=== PATIENT | female | born 1985 | race Caucasian/White ===

== ENCOUNTER 2017-09-13 09:52 | Emergency (ER) | payer OTHER ==
[2017-09-13] MEDS ORDERED: TYLENOL PO ONE (12:34)
[2017-09-13] MEDS ORDERED: TYLENOL ONE (12:39)
[2017-09-13] MEDS ORDERED: FLEXERIL PO ONE (14:24)
[2017-09-13] MEDS ORDERED: ZOFRAN ODT PO ONE (14:25)
[2017-09-13] MEDS ORDERED: NORCO 5/325 PO ONE (14:25)
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
[2017-09-13 15:41] VITALS: BP 134/92
== END 2017-09-13 15:43 | disposition home or self-care (01) ==
LOC: ED 09:52
DX: S16.1XXA Strain of muscle, fascia and tendon at neck level, initial encounter (principal); S39.012A Strain of muscle, fascia and tendon of lower back, initial encounter; F17.200 Nicotine dependence, unspecified, uncomplicated; Z88.6 Allergy status to analgesic agent; V23.4XXA Motorcycle driver injured in collision with car, pick-up truck or van in traffic accident, initial encounter; Y92.415 Exit ramp or entrance ramp of street or highway as the place of occurrence of the external cause; Y93.89 Activity, other specified; Y99.8 Other external cause status
CPT/HCPCS: 72070; 72125; Q0162

== ENCOUNTER 2017-09-14 23:54 | Emergency (ER) | payer OTHER | END 2017-09-15 04:00 | disposition left against medical advice (07) | LOC: ED 23:54 | DX: M54.2 Cervicalgia (principal); Z53.21 Procedure and treatment not carried out due to patient leaving prior to being seen by health care provider ==

== ENCOUNTER 2018-04-17 15:44 | Emergency (ER) | payer SELFPAY ==
[2018-04-17 16:26] LABS: Bilirubin,Urine NEG (Negative); Blood,Urine SM (Negative); Color,Urine Yellow (Yellow); HCG Qualitative,Urine Negative (Negative); Mucus,Urine FEW /HPF; Protein,Urine <15 mg/dL mg/dL (Negative); Urobilinogen,Urine < 2.0 mg/dL (<2.0)
[2018-04-17 16:42] LABS: Basophils # (Auto) 0.1 K/mm3 (0.0-0.1); Basophils % (Auto) 0.5 % (0.0-1.8); Eosinophils # (Auto) 0.4 K/mm3 (0.0-0.4); Eosinophils % (Auto) 3.8 % (0.0-4.3); Hematocrit 38.2 % (30.3-42.9); Hemoglobin 12.9 gm/dl (10.1-14.3); Lymphocytes # (Auto) 3.4 K/mm3 (1.2-5.4); Lymphocytes % (Auto) 30.5 % (13.4-35.0); Mean Corpuscular HGB Conc 34 % (30-34); Mean Corpuscular Hemoglobin 31 pg (28-32); Mean Corpuscular Volume 92 fl (79-97); Monocytes # (Auto) 0.7 K/mm3 (0.0-0.8); Monocytes % (Auto) 6.3 % (0.0-7.3); Platelet Count 244 K/mm3 (140-440); Red Blood Count 4.16 M/mm3 (3.65-5.03); Red Cell Distribution Width 12.3 % (13.2-15.2)
[2018-04-17 17:20] LABS: Alanine Aminotransferase 15 units/L (7-56); Albumin 4.5 g/dL (3.9-5); BUN/Creatinine Ratio 16; Blood Urea Nitrogen 13 mg/dL (7-17); Hemolysis Index 7; Lipase 23 units/L (13-60)
[2018-04-17] MEDS ORDERED: ZOFRAN IV ONE (17:48)
[2018-04-17] MEDS ORDERED: MORPHINE IV ONE (17:48)
[2018-04-17] MEDS ORDERED: NACL 0.9% 1000 ML 1,000 ML IV ONE (17:48)
--- NOTE | 2018-04-17 17:51 | Emergency Department Report ---
Elsy Doc - Documentation Documentation: 32 yo female with a past medical history PTSD and anxiety presents complaining of lower abdominal pain and lower back pain 3 weeks. Pain is sharp, constant, radiates from the back to the lower abdomen. Worse with palpation and movement. No alleviating factors. Recently patient has had nausea and vomiting as well as diarrhea. She denies dysuria. Patient denies concern for STDs and does not have sex with men. Positive family history of ovarian cancer. Labs reviewed and unremarkable Physical exam reveals significant lower abdominal tenderness CT abdomen and pelvis IV contrast, normal saline, Zofran, morphine initiated Mid-level to follow
[2018-04-17] MEDS ORDERED: NORCO 5/325 ONE (18:51)
[2018-04-17] MEDS ORDERED: NORCO 5/325 PO ONE (18:52)
--- NOTE | 2018-04-17 19:39 | Cat Scan Report ---
FINAL REPORT PROCEDURE: CT ABDOMEN PELVIS W CON TECHNIQUE: Computerized axial tomography of the abdomen and pelvis was performed after the IV injection of iodinated nonionic contrast. HISTORY: lower back and lower abd pain COMPARISON: No prior studies are available for comparison. FINDINGS: Lower Lung bazan: There is minimal dependent atelectasis. Lung bases otherwise are clear. Upper Abdomen: Gallbladder is contracted and difficult to evaluate. No gross abnormality is seen. The liver showed no focal abnormalities. The adrenal glands, the pancreas and the spleen are unremarkable. Kidneys, Ureters and Urinary bladder: No abnormalities are seen. Retroperitoneum: Atherosclerotic changes are seen in the abdominal aorta. No aneurysm is visualized. Nonspecific subcentimeter lymph nodes are seen in the retroperitoneum. No pathologically enlarged lymph nodes are identified. Bowel: No abnormalities are identified. No evidence of bowel obstruction or ascites. There is no free intraperitoneal gas. Normal-appearing appendix is seen in the right lower quadrant. Reproductive organs: Uterus and left adnexa are unremarkable. There is a small, 1.8 centimeter cystic area visualized in the right ovary with irregular enhancement of the lovelace suggesting recently ruptured follicle. Small amount of nonspecific free fluid is seen in the cul-de-sac. Other: No acute bony abnormalities are identified. Mild degenerative disc changes are visualized at the L3-4 level with small marginal osteophyte formation. IMPRESSION: No acute abnormalities are identified. Small irregular cystic structure visualize right ovary suggesting recently ruptured follicle. Small amount of nonspecific free fluid is seen in the cul-de-sac. Pelvis is otherwise unremarkable. Mild degenerative disc disease as described. If further evaluation of the lumbar spine is clinically indicated MRI may be helpful.
--- NOTE | 2018-04-17 19:54 | Emergency Department Report ---
ED Abdominal Pain HPI - General Chief Complaint: Abdominal Pain Stated Complaint: LOWER ABD PAIN/BODYACHE Time Seen by Provider: 04/17/18 17:40 Source: patient Mode of arrival: Ambulatory Limitations: No Limitations - History of Present Illness Initial Comments: 32 yo female with a past medical history PTSD and anxiety presents complaining of lower abdominal pain and lower back pain 3 weeks. Pain is sharp, constant, radiates from the back to the lower abdomen. Worse with palpation and movement. No alleviating factors. Recently patient has had nausea and vomiting as well as diarrhea. She denies dysuria. Patient denies concern for STDs and does not have sex with men. Positive family history of ovarian cancer. Severity scale (0 -10): 0 - Related Data Previous Rx's Medication Instructions Recorded Last Taken Type Acetaminophen/Codeine [Tylenol 1 tab PO Q6H PRN #14 tab 09/13/17 Unknown Rx /Codeine # 3 tab] Cyclobenzaprine [Flexeril] 10 mg PO TID PRN #20 tablet 09/13/17 Unknown Rx traMADol [Ultram 50 MG tab] 50 mg PO Q6HR PRN #20 tablet 04/17/18 Unknown Rx Allergies Allergy/AdvReac Type Severity Reaction Status Date / Time ibuprofen [From Motrin] AdvReac Anaphylaxis Verified 09/13/17 11:02 ED Review of Systems ROS: Stated complaint: LOWER ABD PAIN/BODYACHE Other details as noted in HPI Constitutional: denies: chills, fever Eyes: denies: eye pain, eye discharge, vision change ENT: denies: ear pain, throat pain Respiratory: denies: cough, shortness of breath, wheezing Cardiovascular: denies: chest pain, palpitations Endocrine: no symptoms reported Gastrointestinal: other (pelvic pain). denies: abdominal pain, nausea, vomiting , diarrhea Genitourinary: denies: urgency, dysuria, frequency, hematuria, discharge Musculoskeletal: denies: back pain, joint swelling, arthralgia Skin: denies: rash, lesions Neurological: denies: headache, weakness, paresthesias Psychiatric: denies: anxiety, depression Hematological/Lymphatic: denies: easy bleeding, easy bruising ED Past Medical Hx - Past Medical History Previous Medical History?: Yes Hx Psychiatric Treatment: Yes (PTSD, ANXIETY) - Surgical History Past Surgical History?: Yes Additional Surgical History: RIGHT THUMB 2011 - Social History Smoking Status: Current Every Day Smoker Substance Use Type: Alcohol, Marijuana, Prescribed - Medications Home Medications: Home Medications Medication Instructions Recorded Confirmed Last Taken Type Acetaminophen/Codeine [Tylenol 1 tab PO Q6H PRN #14 tab 09/13/17 Unknown Rx /Codeine # 3 tab] Cyclobenzaprine [Flexeril] 10 mg PO TID PRN #20 tablet 09/13/17 Unknown Rx traMADol [Ultram 50 MG tab] 50 mg PO Q6HR PRN #20 tablet 04/17/18 Unknown Rx ED Physical Exam - General Limitations: No Limitations General appearance: alert, in no apparent distress - Head Head exam: Present: atraumatic, normocephalic - Eye Eye exam: Present: normal appearance - ENT ENT exam: Present: mucous membranes moist - Neck Neck exam: Present: normal inspection - Respiratory Respiratory exam: Present: normal lung sounds bilaterally. Absent: respiratory distress - Cardiovascular Cardiovascular Exam: Present: regular rate, normal rhythm. Absent: systolic murmur, diastolic murmur, rubs, gallop - GI/Abdominal GI/Abdominal exam: Present: soft, tenderness (at lower right pelvic region), normal bowel sounds. Absent: guarding, rebound, organomegaly, mass, bruit, pulsatile mass - Extremities Exam Extremities exam: Present: normal inspection, full ROM - Back Exam Back exam: Present: normal inspection, full ROM. Absent: CVA tenderness (R), CVA tenderness (L) - Neurological Exam Neurological exam: Present: alert, oriented X3, normal gait - Psychiatric Psychiatric exam: Present: normal affect, normal mood - Skin Skin exam: Present: warm, dry, intact, normal color. Absent: rash ED Course Vital Signs 04/17/18 04/17/18 04/17/18 15:52 18:19 18:49 Temperature 98.6 F Pulse Rate 102 H Respiratory 18 18 18 Rate Blood Pressure 164/100 O2 Sat by Pulse 99 Oximetry 04/17/18 18:56 Temperature Pulse Rate Respiratory 18 Rate Blood Pressure O2 Sat by Pulse Oximetry ED Medical Decision Making - Lab Data Result diagrams: 04/17/18 15:59 04/17/18 15:59 Laboratory Last Values WBC 11.1 K/mm3 (4.5-11.0) H 04/17/18 15:59 RBC 4.16 M/mm3 (3.65-5.03) 04/17/18 15:59 Hgb 12.9 gm/dl (10.1-14.3) 04/17/18 15:59 Hct 38.2 % (30.3-42.9) 04/17/18 15:59 MCV 92 fl (79-97) 18 15:59 MCH 31 pg (28-32) 04/17/18 15:59 MCHC 34 % (30-34) 04/17/18 15:59 RDW 12.3 % (13.2-15.2) L 04/17/18 15:59 Plt Count 244 K/mm3 (140-440) 04/17/18 15:59 Lymph % (Auto) 30.5 % (13.4-35.0) 04/17/18 15:59 [place] % (Auto) 6.3 % (0.0-7.3) 04/17/18 15:59 Eos % (Auto) 3.8 % (0.0-4.3) 04/17/18 15:59 Baso % (Auto) 0.5 % (0.0-1.8) 04/17/18 15:59 Lymph # 3.4 K/mm3 (1.2-5.4) 04/17/18 15:59 [place] # 0.7 K/mm3 (0.0-0.8) 04/17/18 15:59 Eos # 0.4 K/mm3 (0.0-0.4) 04/17/18 15:59 Baso # 0.1 K/mm3 (0.0-0.1) 04/17/18 15:59 Seg Neutrophils % 58.9 % (40.0-70.0) 04/17/18 15:59 Seg Neutrophils # 6.6 K/mm3 (1.8-7.7) 04/17/18 15:59 Sodium 140 mmol/L (137-145) 04/17/18 15:59 Potassium 4.0 mmol/L (3.6-5.0) 04/17/18 15:59 Chloride 103.2 mmol/L (98-107) 04/17/18 15:59 Carbon Dioxide 27 mmol/L (22-30) 04/17/18 15:59 Anion Gap 14 mmol/L 04/17/18 15:59 BUN 13 mg/dL (7-17) 04/17/18 15:59 Creatinine 0.8 mg/dL (0.7-1.2) 04/17/18 15:59 Estimated GFR > 60 ml/min 04/17/18 15:59 BUN/Creatinine Ratio 16 % 04/17/18 15:59 Glucose 87 mg/dL (65-100) 04/17/18 15:59 Calcium 9.0 mg/dL (8.4-10.2) 04/17/18 15:59 Total Bilirubin 0.30 mg/dL (0.1-1.2) 04/17/18 15:59 AST 18 units/L (5-40) 04/17/18 15:59 ALT 15 units/L (7-56) 04/17/18 15:59 Alkaline Phosphatase 49 units/L (35-129) 04/17/18 15:59 Total Protein 7.4 g/dL (6.3-8.2) 04/17/18 15:59 Albumin 4.5 g/dL (3.9-5) 04/17/18 15:59 Albumin/Globulin Ratio 1.6 % 04/17/18 15:59 Lipase 23 units/L (13-60) 04/17/18 15:59 Urine Color Yellow (Yellow) 04/17/18 16:12 Urine Turbidity Clear (Clear) 04/17/18 16:12 Urine pH 5.0 (5.0-7.0) 04/17/18 16:12 Ur Specific [place] 1.021 (1.003-1.030) 04/17/18 16:12 Urine Protein <15 mg/dl mg/dL (Negative) 04/17/18 16:12 Urine Glucose (UA) Neg mg/dL (Negative) 04/17/18 16:12 Urine Ketones Neg mg/dL (Negative) 04/17/18 16:12 Urine Blood Sm (Negative) 04/17/18 16:12 Urine Nitrite Neg (Negative) 04/17/18 16:12 Urine Bilirubin Neg (Negative) 04/17/18 16:12 Urine Urobilinogen < 2.0 mg/dL (<2.0) 04/17/18 16:12 Ur Leukocyte Esterase Neg (Negative) 04/17/18 16:12 Urine WBC (Auto) 1.0 /HPF (0.0-6.0) 04/17/18 16:12 Urine RBC (Auto) 4.0 /HPF (0.0-6.0) 04/17/18 16:12 U Epithel Cells (Auto) 1.0 /HPF (0-13.0) 04/17/18 16:12 Urine Mucus Few /HPF 04/17/18 16:12 Urine HCG, Qual Negative (Negative) 04/17/18 16:12 - Radiology Data Radiology results: report reviewed, image reviewed FINAL REPORT PROCEDURE: CT ABDOMEN PELVIS W CON TECHNIQUE: Computerized axial tomography of the abdomen and pelvis was performed after the IV injection of iodinated nonionic contrast. HISTORY: lower back and lower abd pain COMPARISON: No prior studies are available for comparison. FINDINGS: Lower Lung bazan: There is minimal dependent atelectasis. Lung bases otherwise are clear. Upper Abdomen: Gallbladder is contracted and difficult to evaluate. No gross abnormality is seen. The liver showed no focal abnormalities. The adrenal glands, the pancreas and the spleen are unremarkable. Kidneys, Ureters and Urinary bladder: No abnormalities are seen. Retroperitoneum: Atherosclerotic changes are seen in the abdominal aorta. No aneurysm is visualized. Nonspecific subcentimeter lymph nodes are seen in the retroperitoneum. No pathologically enlarged lymph nodes are identified. Bowel: No abnormalities are identified. No evidence of bowel obstruction or ascites. There is no free intraperitoneal gas. Normal-appearing appendix is seen in the right lower quadrant. Reproductive organs: Uterus and left adnexa are unremarkable. There is a small, 1.8 centimeter cystic area visualized in the right ovary with irregular enhancement of the lovelace suggesting recently ruptured follicle. Small amount of nonspecific free fluid is seen in the cul-de-sac. Other: No acute bony abnormalities are identified. Mild degenerative disc changes are visualized at the L3-4 level with small marginal osteophyte formation. IMPRESSION: No acute abnormalities are identified. Small irregular cystic structure visualize right ovary suggesting recently ruptured follicle. Small amount of nonspecific free fluid is seen in the cul-de-sac. Pelvis is otherwise unremarkable. Mild degenerative disc disease as described. If further evaluation of the lumbar spine is clinically indicated MRI may be helpful. Transcribed By: YAMILE Dictated By: ROBSON JACKSON MD Electronically Authenticated By: ROBSON JACKSON MD Signed Date/Time: 04/17/181933 - Medical Decision Making 32-year-old female presents with pelvic pain from ruptured right ovarian cyst ED course: Patient received GI cocktail with pain medication and IV fluids. CBC, CMP, lipase and test all ordered. All labs within normal limits CT scan shows right ruptured ovarian cyst, see report above I discussed all this findings with the patient. I discussed the patient should' ve begun him on some pain relief medication and to follow-up with FARM TRACTOR OPERATOR. [facility] TRA[facility] OPERATOR referral was given Discussed with the harjinder follow-up. Discussed the patient's symptoms worsen or new symptoms arise to return to ED Vital signs are normalized. Patient is in no acute or respiratory distress she understands instructions given. Critical care attestation.: If time is entered above; I have spent that time in minutes in the direct care of this critically ill patient, excluding procedure time. ED Disposition Clinical Impression: Rupture of follicular cyst of ovary Ovarian cyst Qualifiers: Laterality: right Qualified Code(s): N83.201 - Unspecified ovarian cyst, right side Disposition: - TO HOME OR SELFCARE Is pt being admited?: No Does the pt Need Aspirin: No Condition: Stable Instructions: Ovarian Cyst (ED), Chronic Pelvic Pain in Women (ED), Abdominal Pain (ED) Additional Instructions: Make sure to follow up with the primary care physician as discussed. Follow-up with ENVIRONMENTAL ADVISOR as referred Take all your medications as you've been prescribed. If you have any worsening symptoms or develop new symptoms please return to ED immediately. Prescriptions: traMADol [Ultram 50 MG tab] 50 mg PO Q6HR PRN #20 tablet PRN Reason: Pain Referrals: PRIMARY CAREMD [Primary Care Provider] - 3-5 Days GENE LEDEZMA MD [Referring] - 3-5 Days [facility] [Outside] - 3-5 Days [facility] [Outside] - 3-5 Days Forms: Accompanied Note, Work/School Release Form(ED) Time of Disposition: 19:57
[2018-04-18 05:32] VITALS: BP 150/87
== END 2018-04-17 20:08 | disposition home or self-care (01) ==
LOC: ED 15:44
DX: N83.201 Unspecified ovarian cyst, right side (principal); F43.10 Post-traumatic stress disorder, unspecified; F41.9 Anxiety disorder, unspecified; F17.200 Nicotine dependence, unspecified, uncomplicated
CPT/HCPCS: 36415; 74177; 80053; 81001; 81025; 83690; 85025; 96361; 96374; 96375; 99284; J2270; J2405; J7030; Q9967